=== PATIENT | female | born 1990 | race Caucasian/White ===

== ENCOUNTER → 2024-11-05 | Outpatient (CLI) | payer BC, SELFPAY ==
[2024-11-05 16:05] LABS: Collection Type, Urine Clean Catch
[2024-11-05 16:23] LABS: Basophils # (Auto) 0.1 Thou/mm3 (0.0-0.2); Basophils % (Auto) 1 % (0-2.5); Eosinophils # (Auto) 0.3 Thou/mm3 (0.0-0.5); Eosinophils % (Auto) 4 % (0-10); Hematocrit 40.9 % (36.0-46.0); Hemoglobin 14.8 g/dL (12.0-16.0); Immature Granulocytes % (Auto) 0 % (0-0); Immature Granulocytes Auto 0.02 Thou/mm3 (0.00-0.00); Lymphocytes # (Auto) 2.9 Thou/mm3 (1.0-4.8); Lymphocytes % (Auto) 32 % (10-50); Mean Corpuscular HGB Conc 36.2 g/dl (31.0-37.0); Mean Corpuscular Hemoglobin 30.3 pg (25.0-35.0); Mean Corpuscular Volume 84 fL (80-100); Monocytes # (Auto) 0.5 Thou/mm3 (0.0-0.8); Monocytes % (Auto) 6 % (0-12); Neutrophils # (Auto) 5.3 Thou/mm3 (1.8-7.7); Neutrophils % (Auto) 59 % (37-80); Nucleated Red Blood Cell % 0 /100 WBC (0); Platelet Count 302 Thou/mm3 (140-440); RDW Standard Deviation 36.5 fL (36.4-46.3); Red Blood Count 4.89 Miln/mm3 (4.00-5.20); White Blood Count 9.1 Thou/mm3 (3.6-11.0)
[2024-11-05 16:29] LABS: HCG,Qualitative Serum Positive
[2024-11-05 16:37] LABS: Beta HCG,Quantitative 42 mIU/mL (<5.0)
[2024-11-05 16:42] LABS: Ferritin 133 ng/mL (7.3-270.7)
[2024-11-05 16:47] LABS: Bacteria,Urine Rare; Bilirubin,Urine Negative (Negative); Blood,Urine Negative (Negative); Budding Yeast,Urine Present; Color,Urine Lt-Yellow (Lt Yel-Yel); Glucose, Urine 4+ (Negative); Ketones,Urine 1+ (Negative); Leukocyte Esterase,Urine Negative (Negative); Nitrite,Urine Negative (Negative); PH,Urine 5.5 (5.0-7.0); Protein,Urine Negative (Neg - Trace); RBC,Urine < 1 /hpf (0-3); Specific Gravity,Urine 1.044 (1.001-1.035); Squamous Epithelial Cell,Urine 2 /hpf (0-5); Urobilinogen,Urine Negative mg/dL (0.0-1.0); WBC,Urine 4 /hpf (0-5)
[2024-11-05 16:53] LABS: Hepatitis B Surface Antigen Non Reactive (Non React); Rubella, IgG Antibody Reactive (Immune)
[2024-11-05 17:27] LABS: Clarity,Urine Hazy (Clear/Hazy)
[2024-11-05 18:37] LABS: Chlamydia trachomatis PCR Negative (Not Detect); Neisseria Gonorrhoeae DNA PCR Negative (Not Detect); Trichomonas Negative (Negative)
[2024-11-06 03:39] LABS: HIV (1&2) Antibody Rapid Non-Reactive
== END | disposition home or self-care (01) ==
LOC: COPL 15:34
PROVIDERS: PCP Internal Medicine; Referring Provider Internal Medicine; Visit Provider Internal Medicine
DX: O24.419 Gestational diabetes mellitus in pregnancy, unspecified control (principal); Z3A.00 Weeks of gestation of pregnancy not specified; Z32.2 Encounter for childbirth instruction
CPT/HCPCS: 36415; 81001; 82728; 84702; 84703; 85025; 86703; 86762; 86850; 86900; 86901; 87086; 87340; 87491; 87591; 87661

== ENCOUNTER 2024-11-21 13:20 | Outpatient (AMB) | payer BC, MEDICAID, SELFPAY ==
--- NOTE | 2024-11-21 13:38 | OBCLNT_ITS ---
Vital Signs 11/21/24 13:49 Height 1.57 m Height Method Stated Weight 119.805 kg Weight Measurement Method Standing Scale BMI 48.3 BP 128/79 Blood Pressure Source Automatic Cuff Blood Pressure Location Right Upper Arm Position Sitting Respiration 17 Pulse 76 Pulse Source Monitor Temp 98.2 F Temp Source Temporal Artery Scan Pulse Oximetry (%) 95 Oxygen Delivery Method Room Air Allergies/Home Meds Allergies & Medications Allergies No Known Allergies Allergy (Verified 11/21/24 13:38) Medication Reconciliation doxylamine 10 mg-pyridoxine (vit B6) 10 mg tablet,delayed release (Diclegis) 1 tab PO BID 30 days #60 tabs 11/21/24 [Rx] vitamin-ferrous fumarate 28 mg iron-folic acid 800 mcg tablet ( Vitamins with Minerals) 1 tab PO QDAY #60 tabs 11/21/24 [Rx] Intake Visit Data Collection New Patient or Established: Established Patient (seen at [facility] within 3 years) Reason for Visit:: OBI Narcotics Agent Required: No Do You Feel Safe at Home: Yes Authorities Contacted: N/A PCP or OBGYN visit in last 3 months: No Hx Now: Yes Are you currently on any form of Control: No Pain Present Currently: No Pain Scale Used: Palmer-David/Numerical Pain scale:: 0 Smoking Status Smoking Status: Never smoker Questionnaires Covid-19 Vaccine Questionnaire Has patient been vacinated for Covid-19 Have you been vacinated for Covid-19: Yes PHQ-9 PHQ-2 Over the last 2 weeks, how often have you been bothered by any of the following problems? 1. Little interest or pleasure in doing things: not at all 2. Feeling down, depressed, or hopeless: not at all Total score: 0 PHQ-9 3. Trouble falling or staying asleep, or sleeping too much: Not at all 4. Feeling tired or having little energy: Not at all 5. Poor appetite or overeating: Not at all 6. Feeling bad about yourself - or that you are a failure or have let yourself or your family down: Not at all 7. Trouble concentrating on things, such as reading the newspaper or watching television: Not at all 8. Moving or speaking so slowly that other people could have noticed? - Or the opposite - being so fidgety or restless that you have been moving around a lot more than usual: not at all 9. Thoughts that you would be better off or of hurting yourself in some way: Not at all Total score: 0 If you checked off any problems, how difficult have these problems made it for you to do your work, take care of things at home, or get along with other people?: not difficult at all Source: Developed by Drs. Huey Christianson, Rola Carter, Paolo Shaffer and colleagues, with an educational herberth from [employer]. Depression screen completed yes Social History Living Situation History Marital Status: Life Partner Lives With: Significant Other Housing: Apartment Tobacco History Smoking Status: Never smoker Alcohol History Alcohol Intake: Never Domestic Abuse History Do You Feel Safe at Home: Yes History of Present Illness HPI Narrative 33 yo for OBI. LMP 10/04/24, short x 2 days. usually menses q month. GDM with 1st . no PMH,No social Habit. unplanned . no SAB complaints. 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 unplanned . LMP 10/04/24. short. increasing nausea. No SAB complaints. prev c/s x1 OB panel, HCG. A 1c and 1 hr gtt. schedule OB sono for visblity. start PNV, diclegesis for nausea. discuss sab precaution, discuss diet and weight. rtc 4 week Menstrual History Menstrual reliability: approximate (month known) Flow: heavy Menstrual regularity: regular Monthly: Yes Age at menarche: 13 On control pills at conception: No OB History : 3 Para: 1 Hx # Pregnancies: 0 # of Living Children: 1 Delivery History 1st : Child's name: LAURA CORONEL date: 04/05/22 sex: male Gestational age at delivery (weeks): 40 Delivery type: weight (lbs): 3628.739 g weight (oz): 226.796 g History of depression before or after : Yes Additional comments: DEPRESSION BEFORE Infection History & Risk Evaluation History of STDs: none HIV risk evaluation: low risk Hepatitis B risk evaluation: low risk Patient or partner has history of Genital Herpes: No Varicella/chicken pox status: immunized Genetic Screening & History Genetic Screening/Teratology Counseling - Includes patient, baby's father, or anyone in either family with: 1. Patient's age 35 years or older as of estimated date of delivery: No 2. Thalassemia (Central African, Panamanian, Mediterranean, or Background); MCV less than 80: No 3. Neural Tube Defect (Meningomyelocele, Spina Bifida, or Anencephaly): No 4. Congenital Heart Defect: No 5. Down Syndrome: No 6. Roman-Sachs (Ashkenazi Anabaptist, Cajun, Persian Otis): No 7. Javier Disease (Ashkenazi Anabaptist): No 8. Familial Dysautonomia (Ashkenazi Anabaptist): No 9. Sickle Cell Disease or Trait (): No 10. Hemophilia or other blood disorders: No 11. Muscular Dystrophy: No 12. Cystic Fibrosis: No 13. [place]'s Chorea: No 14. Mental Retardation/Autism: No 15. Other inherited genetic or chromosomal disorder: No 16. Maternal Metabolic Disorder (EG,TYPE 1 Diabetes, PKU): No 17. Patient or baby's father had a child with defects not listed above: No 18. Recurrent loss or a stillbirth: No 19. Medications (including supplements, vitamins, herbs or otc drugs)/illicit/recreational drugs/alcohol since last menstrual period: No 20. Any other: No Infection History 1. Live with someone with TB or exposed to TB: No 2. Rash or viral illness since last menstrual period: No 3. Hepatitis B,C: No Other (see comments) Source: [employer] Review of Systems Review of Systems Systems Reviewed: All systems reviewed, normal except as documented Exam Narrative Physical exam: prev c/s x1 General Limitations: no limitations General Appearance: alert, in no apparent distress, comfortable, cooperative, healthy appearing, well developed and well groomed Chest Chest inspection: Present normal inspection and symmetric chest wall rise Resp Respiratory exam: Present normal lung sounds bilaterally Card Cardiovascular exam: Present regular rate, normal rhythm and normal heart sounds Abdominal Abdominal exam: Present soft and normal bowel sounds Psych Psychiatric exam: Present normal affect and normal mood Office Procedures OB Clinic LOC & Office Proc's Nursing/Assessment Patient Status: Established Patient OB Clinic Nursing Assessment: Medication Reconciliation, Update PMH in EMR and Vital Signs OB Clinic Coordination of Care: Complex Care and Chronic Disease 1-5, Consent,records obtained, informed consent, Education Simp Pt/Fam and Lab and Imaging orders Special Needs: Heart tones Established Patient Charge Established Patient Point Assignment: 120 Established Patient Point Charge: EP Level 4 (120-155) Assessment & Plan Diagnosis / Problem List (1) Encounter for supervision of high risk in first trimester, antepartum: Status: Acute (2) Previous section: Status: Acute (3) Maternal obesity syndrome in first trimester: Status: Acute (4) Threatened affecting intrauterine : Status: Acute Plan hcg, A1c,1hr gtt,OB panel today, sched ob sono for viability. discuss sab precaution. rtc 4 week obc Additional Plan Follow Up: 4 Weeks (obc)
[2024-11-21 13:49] VITALS: BP 128/79; PULSE 76; RESP 17; TEMP 36.8; O2SAT 95; BMI 48.3
== END 2024-11-21 14:46 | disposition home or self-care (01) ==
PROVIDERS: PCP Internal Medicine; Referring Provider Internal Medicine; Supervising Provider Advanced Practice Midwife; Visit Provider Advanced Practice Midwife
DX: O09.291 Supervision of pregnancy with other poor reproductive or obstetric history, first trimester (principal); O34.219 Maternal care for unspecified type scar from previous cesarean delivery; O09.891 Supervision of other high risk pregnancies, first trimester; O99.211 Obesity complicating pregnancy, first trimester; O20.0 Threatened abortion; Z3A.01 Less than 8 weeks gestation of pregnancy; Z86.32 Personal history of gestational diabetes
CPT/HCPCS: 99214; G0463

== ENCOUNTER → 2024-11-22 | Outpatient (CLI) | payer BC, MEDICAID, SELFPAY ==
[2024-11-22 09:13] LABS: Collection Type, Urine Clean Catch
[2024-11-22 09:47] LABS: Glucose Estimated Average 329 mg/dL (80-131); Hemoglobin A1C 13.1 % Hgb (4.8-6.0)
[2024-11-22 09:49] LABS: Glucose,1 Hour PP 50gm Dose 351 mg/dL (80-140)
[2024-11-22 09:53] LABS: Bacteria,Urine Rare; Bilirubin,Urine Negative (Negative); Blood,Urine Negative (Negative); Clarity,Urine Clear (Clear/Hazy); Color,Urine Lt-Yellow (Lt Yel-Yel); Culture Indicated,Urine Not Indicated; Glucose, Urine 4+ (Negative); Ketones,Urine 4+ (Negative); Leukocyte Esterase,Urine Positive (Negative); Nitrite,Urine Negative (Negative); PH,Urine 5.5 (5.0-7.0); Protein,Urine Trace (Neg - Trace); RBC,Urine 6 /hpf (0-3); Specific Gravity,Urine 1.046 (1.001-1.035); Squamous Epithelial Cell,Urine 2 /hpf (0-5); Urobilinogen,Urine Negative mg/dL (0.0-1.0); WBC,Urine 5 /hpf (0-5)
[2024-11-22 10:13] LABS: Syphilis Nonreactive (Nonreactive)
[2024-11-22 10:29] LABS: Hepatitis B Surface Antigen Non Reactive (Non React); Hepatitis C Antibody Non Reactive (Non React); Rubella, IgG Antibody Reactive (Immune)
[2024-11-22 11:02] LABS: HIV (1&2) Antibody Rapid Non-Reactive
== END | disposition home or self-care (01) ==
PROVIDERS: PCP Internal Medicine; Referring Provider Advanced Practice Midwife; Visit Provider Advanced Practice Midwife
DX: O20.0 Threatened abortion (principal); O99.211 Obesity complicating pregnancy, first trimester
CPT/HCPCS: 36415; 81001; 82950; 83036; 86703; 86762; 86780; 86803; 87340

== ENCOUNTER → 2024-11-30 | Outpatient (CLI) | payer BC, MEDICAID, SELFPAY ==
--- NOTE | 2024-11-30 10:15 | XR_ITS ---
Examination: Complete OB ultrasound, less than 14 weeks, transabdominal Date and time of exam: November 30, 2024 1102 hours INDICATIONS: Physician's orders threatened affecting intrauterine , maternal obesity syndrome first trimester Technique: Obstetrical ultrasound images less than 14 weeks performed via transabdominal imaging Findings: Uterus 11.4 cm intrauterine gestational sac 1.0 cm corresponds to 5 weeks 5 day gestational age. No pole, no cardiac activity Right ovary 2.5 cm arterial flow Left ovary 2.5 cm arterial flow IMPRESSION: Empty intrauterine gestational sac corresponding to 5 weeks 5 day gestational age No pole, no cardiac activity Recommend short-term follow-up transvaginal pelvic sonography to confirm viability
== END | disposition home or self-care (01) ==
LOC: CDIM 10:19
PROVIDERS: PCP Internal Medicine; Referring Provider Advanced Practice Midwife; Visit Provider Advanced Practice Midwife
DX: O20.0 Threatened abortion (principal); O99.211 Obesity complicating pregnancy, first trimester; O09.91 Supervision of high risk pregnancy, unspecified, first trimester
CPT/HCPCS: 76801

== ENCOUNTER 2024-12-05 14:26 | Emergency (ER) | payer BC, MEDICAID, SELFPAY ==
[2024-12-05 14:27] VITALS: BMI 48.2
[2024-12-05 14:36] VITALS: BP 144/90; PULSE 78; RESP 18; TEMP 36.6; O2SAT 98
--- NOTE | 2024-12-05 14:39 | XR_ITS ---
Examination: Complete OB ultrasound, less than 14 weeks, transabdominal Date and time of exam: December 05, 2024 1538 hours INDICATIONS: Vaginal bleeding today, pelvic and back pain one week Technique: Obstetrical ultrasound images less than 14 weeks performed via transabdominal imaging Findings: Uterus 10.1 cm, gestational sac 1.4 cm corresponds to 6 week 2 day gestational age The gestational sac is low in position in the lower uterine segment No pole, no cardiac activity Right ovary 2.4 cm arterial flow Left ovary 2.6 cm arterial flow IMPRESSION: Findings most consistent with spontaneous in progress, recommend short-term follow-up pelvic sonography
--- NOTE | 2024-12-05 14:39 | EDNOTE_ITS ---
<Statement entered by Zahra Morales MD - 12/14/24 19:13> As co-signing physician, I was present and available for consult prn. I concur with the plan and care as documented by the midlevel provider. ED OB Contraction Preg RMI/HPI General Chief complaint: Vaginal Bleeding Stated complaint: SPOTTING & BACK PAIN SINCE TODAY; 5WKS&5DAYS OB Time Seen by Provider: 12/05/24 14:33 Source: patient Arrival date/time: 12/05/24 14:26 33-year-old female with no known medical history presents to the emergency room with a chief complaint of vaginal spotting and lower back pain x 1 day. Patient is currently 5 weeks and 5 days . Patient is a G3, P1. Mode of arrival: ambulatory Limitations: no limitations Related Data Previous Rx's ?Medication ?Instructions ?Recorded doxylamine 10 mg-pyridoxine (vit 1 tab PO BID 30 days #60 tabs 11/21/24 B6) 10 mg tablet,delayed release (Diclegis) vitamin-ferrous fumarate 1 tab PO QDAY #60 ta bs 11/21/24 28 mg iron-folic acid 800 mcg tablet ( Vitamins with Minerals) Allergies Allergy/AdvReac Type Severity Reaction Status Date / Time No Known Allergies Allergy Verified 12/06/24 01:36 Review of Systems Review of Systems Systems Reviewed: All systems reviewed, normal except as documented Constitutional Constitutional: Reports system reviewed and no additional complaints, except as documented, Denies fatigue, Denies fever(s), Denies headache(s) and Denies weakness Eyes Eyes: Reports system reviewed and no additional complaints, except as docum ented, Denies blurry vision and Denies change in vision ENT Ears, Nose, Mouth, and Throat: Reports system reviewed and no additional complaints, except as documented, Denies otalgia, Denies headache(s), Denies nasal congestion, Denies throat swelling and Denies vertigo Cardiovascular Cardiovascular: Reports system reviewed and no additional complaints, except as documented, Denies chest pain, Denies dyspnea and Denies dyspnea on exertion Respiratory Respiratory: Reports system reviewed and no additional complaints, except as documented, Denies chest congestion, Denies cough, Denies dyspnea, Denies dyspnea on exertion and Denies wheezing Gastrointestinal Gastrointestinal: Reports system reviewed and no additional complaints, except as documented, Denies abdominal pain, Denies cramping, Denies nausea and Denies vomiting Genitourinary Genitourinary: Reports system reviewed and no additional complaints, except as documented, Reports abnormal vaginal bleeding and Denies pelvic pain Musculoskeletal Musculoskeletal: Reports system reviewed and no additional complaints, except as documented and Denies back pain Integumentary/Breasts Skin/Breast: Reports system reviewed and no additional complaints, except as documented and Denies wounds Neurologic Neurologic: Reports system reviewed and no additional complaints, except as documented, Denies confusion, Denies headache(s), Denies lack of coordination, Denies vertigo and Denies weakness Psychiatric Psychiatric: Reports system reviewed and no additional complaints, except as documented, Denies anxiety, Denies confusion, Denies depression, Denies paranoia, Denies suicidal ideation and Denies tactile hallucinations Endocrine Endocrine: Reports system reviewed and no additional complaints, except as documented and Denies fatigue Hematologic/Lymphatic Hematologic/Lymphatic: Reports system reviewed and no additional complaints, except as documented and Denies lymphadenopathy Allergic/Immunologic Allergic/Immunologic: Reports system reviewed and no additional complaints, except as documented, Denies throat swelling, Denies urticaria and Denies wheezing Past Medical History Past Medical History CARDIAC: Negative Congestive Heart Failure RESPIRATORY: Negative Chronic Obstructive Pulmonary Disease (COPD) GENITOURINARY: Negative Renal Disease ENDOCRINE: Positive Diabetes Mellitus Type 2; Negative Diabetes Mellitus Type 1 Social History SMOKING STATUS: Never smoker ED Exam General Limitations: Present no limitations General appearance: Present alert and in no apparent distress Head Head exam: Present atraumatic Eye Eye exam: Present normal appearance, PERRL and EOMI ENT ENT exam: Present normal exam, normal oropharynx and mucous membranes moist Neck Neck exam: Present normal inspection, full ROM and trachea midline Chest Chest inspection: Present normal inspection and symmetric chest wall rise Respiratory Respiratory exam: Present normal lung sounds bilaterally Cardiovascular Cardiovascular exam: Present regular rate, normal rhythm and normal heart sounds Abdominal Exam Abdominal exam: Present soft and normal bowel sounds; Absent distention, tenderness, guarding, rebound or rigidity Extremities Exam Extremities exam: Present normal inspection and full ROM Back Exam Back exam: Present normal inspection and full ROM Neurological Exam Neurological exam: Present alert, oriented X3 and CN II-XII intact Psychiatric Psychiatric exam: Present normal affect and normal mood Skin Skin exam: Present warm, dry, intact and normal color Course Quality Measures none Orders Category Date Time Status US OB <= 14 weeks fetus Stat Exams 12/05/24 14:39 Completed ABO/RH Type Stat Lab 12/05/24 14:49 Completed Beta HCG,Quantitative Stat Lab 12/05/24 14:49 Completed CBC Stat Lab 12/05/24 14:49 Completed CMP [Comprehensive Metabolic Panel] Stat Lab 12/05/24 14:49 Completed UA [Urinalysis] Stat Lab 12/05/24 14:45 Completed Vital Signs Vital signs: Vital Signs Temperature 98 F 12/05/24 14:36 Pulse Rate 78 12/05/24 14:36 Respiratory Rate 18 12/05/24 14:36 Blood Pressure 144/90 H 12/05/24 14:36 Pulse Oximetry (%) 98 12/05/24 14:36 Oxygen Delivery Method Room Air 12/05/24 14:36 O2 saturation 98% within normal limits Vaginal Bleeding MDM Narrative MDM Narrative: 33-year-old female with no known medical history presents to the emergency room with a chief complaint of vaginal spotting and lower back pain x 1 day. Patient is currently 5 weeks and 5 days . Patient is a G3, P1. Patient is hemodynamically stable and in no apparent distress. She is not tachycardic not tachypneic and O2 saturation is within normal limits Physical examination shows some lumbar back pain at this time there is no heavy vaginal bleeding patient states she is only having vaginal spotting when she wipes. Ultrasound OB was completed and at this time there is no cardiac activity and there is no pole. Our radiologist states that she is currently 6 weeks and 2 days . I spoke to the patient and told her that the findings are most consistent with a spontaneous but due to the gestational age a short-term follow-up is needed. I told the patient that she can follow-up with her [facility]PET INSPECTOR FINISHED or return to the emergency room in 3 days for repeat ultrasound as well as blood work. I spoke to the patient and told her that her sugar was elevated and that she will need to follow-up with her [facility]PET INSPECT[facility] FINISHED and monitor her sugar. I also spoke to the patient that if she is having increased bleeding or worsening pain she can return to the emergency room. Today her hCG levels were 3589. Patient was discharged and educated to follow-up with primary care provider in the next 24 to 48 hours and return to the emergency room for any evidence of worsening signs or symptoms Patient data External records reviewed:: [facility] previous records Clinical information provided by:: patient Social determinants that could affect healthcare access:: none Patient has the following chronic illnesses:: No chronic illnesses How is presenting disease/condition affected by chronic disease/condition?: no chronic disease Evaluation data The following diagnostics were reviewed and interpreted by me:: lab results and radiology exam(s) Lab and/or radiology exams considered but not ordered:: Labs and radiology exams considered and ordered Interpretation Summary: Ultrasound OB-Findings: Uterus 10.1 cm, gestational sac 1.4 cm corresponds to 6 week 2 day gestational age The gestational sac is low in position in the lower uterine segment No pole, no cardiac activity Right ovary 2.4 cm arterial flow Left ovary 2.6 cm arterial flow IMPRESSION: Findings most consistent with spontaneous in progress, recommend short-term follow-up pelvic sonography Medications / Prescriptions Medications or Prescriptions considered but not ordered:: No medication given Medication administrations:: No medication given Consultations Consultation(s) initiated? (list below): No Diagnosis Vaginal Bleeding Differential Diagnosis: dysfunctional uterine bleeding, ectopic without intrauterine and vaginal bleeding Most likely diagnosis given after review of the tests above:: Vaginal bleeding Admission Indicated Admission indicated?: not indicated Admission Request Was there a request for admission?: No Disposition Plan Disposition Plan: Discharge Discharge Attestation Discharge Attestation: The patient and all family members were given an opportunity to ask questions and understood the discharge instructions. Discharge instructions specifically effects, indications for sooner follow up or return to the emergency department, and the expected course of current diagnosis. Patient condition: Stable Discharge Plan Plan Patient Disposition: HOME (Self Care) Discharge Disposition comment: Stable Prescriptions/Referrals Prescriptions/Med Rec: No Action vit-iron fum-folic ac [ Vitamin with Minerals] 28 mg iron- 800 mcg tablet 1 tab PO QDAY Qty: 60 3RF doxylamine-pyridoxine (vit B6) [Diclegis] 10-10 mg tablet,delayed release (DR/EC) 1 tab PO BID 30 Days Qty: 60 2RF Referrals: No Primary/Family,Physician [Primary Care Provider] - In 1 week Problem List Clinical Impression: Vaginal spotting, Lumbar back pain Patient/Caregiver Discharge Instructions Education Materials: ED Dysfunctional Uterine Bleeding Additional Instructions: Please follow-up with your CARPET INSPECTOR FINISHED in the next 24 to 48 hours At this time your ultrasound shows that you are 6 weeks and 2 days. There is no cardiac activity that was found on the ultrasound. Our radiologist recommends a short-term follow-up to assess your . Today your hCG levels are 3589 Please follow-up with your CARPET INSPECTOR FINISHED in the next 24 to 48 hours For any evidence of worsening signs or symptoms return to the emergency room immediately Print Language: Swedish Stand Alone Forms: [employer] Award Info., Patient Portal Info Letter PA/ALYSON Supervising Physician PA/ALYSON Supervising Physician: Dr. MORALES
[2024-12-05 14:55] LABS: Basophils # (Auto) 0.0 Thou/mm3 (0.0-0.2); Basophils % (Auto) 1 % (0-2.5); Eosinophils # (Auto) 0.2 Thou/mm3 (0.0-0.5); Eosinophils % (Auto) 3 % (0-10); Hematocrit 39.3 % (36.0-46.0); Hemoglobin 14.0 g/dL (12.0-16.0); Immature Granulocytes Auto 0.02 Thou/mm3 (0.00-0.00); Lymphocytes # (Auto) 2.4 Thou/mm3 (1.0-4.8); Lymphocytes % (Auto) 36 % (10-50); Mean Corpuscular HGB Conc 35.6 g/dl (31.0-37.0); Mean Corpuscular Hemoglobin 30.9 pg (25.0-35.0); Mean Corpuscular Volume 87 fL (80-100); Monocytes # (Auto) 0.4 Thou/mm3 (0.0-0.8); Monocytes % (Auto) 6 % (0-12); Neutrophils # (Auto) 3.7 Thou/mm3 (1.8-7.7); Neutrophils % (Auto) 55 % (37-80); Nucleated Red Blood Cell # 0.00 Thou/mm3 (0.00-0.00); Nucleated Red Blood Cell % 0 /100 WBC (0); Platelet Count 251 Thou/mm3 (140-440); RDW Standard Deviation 40.1 fL (36.4-46.3); Red Blood Count 4.53 Miln/mm3 (4.00-5.20); White Blood Count 6.8 Thou/mm3 (3.6-11.0)
[2024-12-05 15:03] LABS: Collection Type, Urine Clean Catch
[2024-12-05 15:13] LABS: Bilirubin,Urine Negative (Negative); Blood,Urine 3+ (Negative); Clarity,Urine Clear (Clear/Hazy); Color,Urine Colorless (Lt Yel-Yel); Glucose, Urine 4+ (Negative); Ketones,Urine Trace (Negative); Leukocyte Esterase,Urine Negative (Negative); Nitrite,Urine Negative (Negative); PH,Urine 6.5 (5.0-7.0); Protein,Urine Negative (Neg - Trace); RBC,Urine 136 /hpf (0-3); Specific Gravity,Urine 1.032 (1.001-1.035); Squamous Epithelial Cell,Urine 5 /hpf (0-5); Urobilinogen,Urine Negative mg/dL (0.0-1.0); WBC,Urine 2 /hpf (0-5)
[2024-12-05 15:26] LABS: Alanine Aminotransferase 59 U/L (10-49); Albumin, Serum 4.3 gm/dL (3.5-5.0); Albumin/Globulin Ratio 1.6 (1.2-2.2); Alkaline Phosphatase 141 U/L (46-116); Anion Gap 7 (7-16); Aspartate Amino Transferase 43 U/L (0-34); BUN/Creatinine Ratio 10 Ratio (12-20); Beta HCG,Quantitative 3589 mIU/mL (<5.0); Bilirubin,Total 0.8 mg/dL (0.3-1.2); Blood Urea Nitrogen 8 mg/dL (9-23); Calcium 8.7 mg/dL (8.3-10.6); Calcium (Corrected) 8.7 mg/dL (8.5-10.1); Carbon Dioxide 24.1 mMol/L (20.0-31.0); Chloride 102 mMol/L (98-107); Creatinine (Component) 0.8 mg/dL (0.6-1.3); Estimated Creatinine Clearance 123.1 mL/min (>60); Globulin 2.7 gm/dL (2.3-3.5); Glucose 398 mg/dL (74-106); Osmolality,Calculated 281 (275-295); Potassium 3.8 mMol/L (3.4-5.1); Sodium 133 mMol/L (136-145); Total Protein 7.0 gm/dL (5.7-8.2); eGFR > 60 See Note
== END 2024-12-05 17:40 | disposition home or self-care (01) ==
PROVIDERS: Nurse Practitioner Family; Emergency Provider Emergency Medicine
DX: O20.9 Hemorrhage in early pregnancy, unspecified (principal); O99.891 Other specified diseases and conditions complicating pregnancy; M54.50 Low back pain, unspecified; Z3A.01 Less than 8 weeks gestation of pregnancy
CPT/HCPCS: 36415; 76801; 80053; 81001; 84702; 85025; 86900; 86901; 99284

== ENCOUNTER 2024-12-06 01:35 | Emergency (ER) | payer BC, MEDICAID, SELFPAY ==
[2024-12-06 01:36] VITALS: BMI 48.2
--- NOTE | 2024-12-06 01:56 | XR_ITS ---
Examination: OB Transvaginal ultrasound of the pelvis, complete Technique: Transvaginal sonographic images pelvis performed using sosa scale imaging Exam date and time: December 06, 2024, 0305 hours INDICATIONS: Spontaneous in progress on pelvic sonogram December 05, 2024, heavy vaginal bleeding this week. FINDINGS: Uterus 8.8 cm, echogenic structure in the lower uterine segment No heart tones No gestational sac Ovaries obscured by bowel gas IMPRESSION: Technically severely limited study Spontaneous in progress Recommend continued transvaginal pelvic sonography follow-up
[2024-12-06 01:57] VITALS: BP 162/99; PULSE 86; RESP 20; TEMP 37; O2SAT 96
[2024-12-06 02:19] LABS: Basophils # (Auto) 0.1 Thou/mm3 (0.0-0.2); Basophils % (Auto) 1 % (0-2.5); Eosinophils # (Auto) 0.2 Thou/mm3 (0.0-0.5); Eosinophils % (Auto) 3 % (0-10); Hematocrit 41.0 % (36.0-46.0); Hemoglobin 14.1 g/dL (12.0-16.0); Immature Granulocytes Auto 0.02 Thou/mm3 (0.00-0.00); Lymphocytes # (Auto) 3.2 Thou/mm3 (1.0-4.8); Lymphocytes % (Auto) 40 % (10-50); Mean Corpuscular HGB Conc 34.4 g/dl (31.0-37.0); Mean Corpuscular Hemoglobin 30.9 pg (25.0-35.0); Mean Corpuscular Volume 90 fL (80-100); Monocytes # (Auto) 0.5 Thou/mm3 (0.0-0.8); Monocytes % (Auto) 6 % (0-12); Neutrophils # (Auto) 4.0 Thou/mm3 (1.8-7.7); Neutrophils % (Auto) 50 % (37-80); Nucleated Red Blood Cell # 0.00 Thou/mm3 (0.00-0.00); Nucleated Red Blood Cell % 0 /100 WBC (0); Platelet Count 220 Thou/mm3 (140-440); RDW Standard Deviation 40.7 fL (36.4-46.3); Red Blood Count 4.57 Miln/mm3 (4.00-5.20); White Blood Count 8.0 Thou/mm3 (3.6-11.0)
[2024-12-06 02:36] LABS: Alanine Aminotransferase 56 U/L (10-49); Albumin, Serum 4.3 gm/dL (3.5-5.0); Albumin/Globulin Ratio 1.5 (1.2-2.2); Alkaline Phosphatase 141 U/L (46-116); Anion Gap 8 (7-16); Aspartate Amino Transferase 35 U/L (0-34); BUN/Creatinine Ratio 10 Ratio (12-20); Bilirubin,Total 1.0 mg/dL (0.3-1.2); Blood Urea Nitrogen 8 mg/dL (9-23); Calcium 9.0 mg/dL (8.3-10.6); Calcium (Corrected) 9.0 mg/dL (8.5-10.1); Carbon Dioxide 25.1 mMol/L (20.0-31.0); Chloride 101 mMol/L (98-107); Creatinine (Component) 0.8 mg/dL (0.6-1.3); Estimated Creatinine Clearance 123.1 mL/min (>60); Globulin 2.8 gm/dL (2.3-3.5); Osmolality,Calculated 286 (275-295); Potassium 3.9 mMol/L (3.4-5.1); Sodium 134 mMol/L (136-145); Total Protein 7.1 gm/dL (5.7-8.2); eGFR > 60 See Note
[2024-12-06 02:42] LABS: Glucose 466 mg/dL (74-106)
[2024-12-06 02:47] LABS: Beta HCG,Quantitative 2553 mIU/mL (<5.0)
[2024-12-06 04:09] VITALS: BP 164/115; PULSE 65; RESP 18; TEMP 36.7; O2SAT 96
[2024-12-06] MEDS: HYDROcodone/APAP 5/325 TABLET 1 TAB PO (04:20)
--- NOTE | 2024-12-06 04:20 | PD.EDRME ---
Rapid Medical Screening Exam RME Arrival date/time: 12/06/24 01:35 33F at approximately 8 weeks and history of gestational DM presents to ED with worsening vaginal bleeding including passing POC. Patient's sugar was found to be high, but patient does not want to wait for interventions because she just wants to go home and cry since she found out she's having another miscarriage. Patient states she will follow-up with PCP in the next day or 2. Chief Complaint: Vaginal Bleeding Time Seen by Provider: 12/06/24 01:56 Vital signs: Vital Signs Temperature 98.6 F 12/06/24 01:57 Pulse Rate 86 12/06/24 01:57 Respiratory Rate 20 12/06/24 01:57 Blood Pressure 162/99 H 12/06/24 01:57 Pulse Oximetry (%) 96 12/06/24 01:57 Oxygen Delivery Method Room Air 12/06/24 01:57
--- NOTE | 2024-12-06 05:35 | PRELIM_ITS ---
Obstetric ultrasound. December 06, 2024 0305 hours Clinical history: Confirm miscarriage; passed tissue. Technique: Real-time ultrasound was performed using Duplex scanning. Comparison: No prior study is available for comparison. Findings: A low-lying crown-rump length (CRL) is noted, measuring 1.6 cm, corresponding to a gestational age of 8 weeks and 0 days. No heart tones are identified. No yolk sac is visualized. The ovaries are obscured by bowel gas and are not evaluated on this examination. There is no free fluid in the cul-de-sac. Impression: Low-lying CRL noted without cardiac activity or yolk sac. Findings are suggestive of failure. Recommend clinical correlation and follow-up as needed. Discussion Details: Results verbally communicated to : Dr. Driscoll at 05:07 AM 12/06/2024 Report Electronically Signed By: Glory Merritt 12/06/2024 5:34:38 AM [EST]
== END 2024-12-06 04:29 | disposition left against medical advice (07) ==
LOC: SERX 02:17
PROVIDERS: Physician Assistant; Emergency Provider Emergency Medicine; PCP Internal Medicine
DX: O03.9 Complete or unspecified spontaneous abortion without complication (principal); Z3A.08 8 weeks gestation of pregnancy; Z53.29 Procedure and treatment not carried out because of patient's decision for other reasons
CPT/HCPCS: 36415; 76817; 80053; 84702; 85025; 99281; A9270

== ENCOUNTER → 2024-12-12 | Outpatient (CLI) | payer BC, MEDICAID, SELFPAY ==
[2024-12-12 10:45] LABS: Beta HCG,Quantitative 11 mIU/mL (<5.0)
== END | disposition home or self-care (01) ==
PROVIDERS: PCP Student in an Organized Health Care Education/Training Program; Referring Provider Student in an Organized Health Care Education/Training Program; Visit Provider Student in an Organized Health Care Education/Training Program
DX: O03.4 Incomplete spontaneous abortion without complication (principal)
CPT/HCPCS: 36415; 84702

== ENCOUNTER → 2024-12-12 | Outpatient (CLI) | payer BC, MEDICAID, SELFPAY ==
--- NOTE | 2024-12-12 12:10 | XR_ITS ---
Examination: Transvaginal ultrasound of the pelvis, complete Technique: Transvaginal sonographic images pelvis performed using sosa scale imaging Exam date and time: December 12, 2024 1221 hours INDICATIONS: Pelvic sonogram December 06, 2024 spontaneous in progress FINDINGS: Uterus 8.2 cm, no intrauterine gestation No retained products of conception Endometrial stripe 0.4 cm Pedunculated uterine body fibroid degeneration 12 x 12 mm Ovaries obscured by bowel gas IMPRESSION: Completed spontaneous .
== END | disposition home or self-care (01) ==
LOC: CDIM 11:47
PROVIDERS: PCP Internal Medicine; Referring Provider Student in an Organized Health Care Education/Training Program; Visit Provider Student in an Organized Health Care Education/Training Program
DX: O03.9 Complete or unspecified spontaneous abortion without complication (principal)
CPT/HCPCS: 76830

== ENCOUNTER 2024-12-17 09:32 | Outpatient (AMB) | payer BC, MEDICAID, SELFPAY ==
[2024-12-17 09:49] VITALS: BP 126/86; PULSE 76; RESP 17; TEMP 36.6; O2SAT 96; BMI 45.3
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
== END 2024-12-17 11:04 | disposition home or self-care (01) ==
LOC: HODSOBC 09:32
PROVIDERS: Supervising Provider Advanced Practice Midwife; Visit Provider Advanced Practice Midwife
DX: O03.9 Complete or unspecified spontaneous abortion without complication (principal); E11.9 Type 2 diabetes mellitus without complications; Z79.84 Long term (current) use of oral hypoglycemic drugs; E66.9 Obesity, unspecified
CPT/HCPCS: 99213; G0463

== ENCOUNTER 2024-12-21 23:44 | Emergency (ER) | payer BC, MEDICAID, SELFPAY ==
[2024-12-21 23:45] VITALS: BMI 44.2
[2024-12-22 00:06] VITALS: BP 165/98; PULSE 89; RESP 18; TEMP 36.9; O2SAT 98; BMI 45.7
[2024-12-22] MEDS: HYDROcodone/APAP 5/325 TABLET 1 TAB PO (01:12)
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
== END 2024-12-22 01:17 | disposition home or self-care (01) ==
LOC: SERX 12-22 01:13
PROVIDERS: Emergency Provider Emergency Medicine; PCP Internal Medicine
DX: S13.4XXA Sprain of ligaments of cervical spine, initial encounter (principal); S09.90XA Unspecified injury of head, initial encounter; V89.2XXA Person injured in unspecified motor-vehicle accident, traffic, initial encounter
CPT/HCPCS: 99283; A9270

== ENCOUNTER → 2025-01-16 | Outpatient (CLI) | payer BC, MEDICAID, SELFPAY ==
[2025-01-16 08:48] LABS: Basophils # (Auto) 0.1 Thou/mm3 (0.0-0.2); Basophils % (Auto) 1 % (0-2.5); Eosinophils # (Auto) 0.3 Thou/mm3 (0.0-0.5); Eosinophils % (Auto) 4 % (0-10); Hematocrit 40.9 % (36.0-46.0); Hemoglobin 13.6 g/dL (12.0-16.0); Immature Granulocytes Auto 0.02 Thou/mm3 (0.00-0.00); Lymphocytes # (Auto) 3.6 Thou/mm3 (1.0-4.8); Lymphocytes % (Auto) 41 % (10-50); Mean Corpuscular HGB Conc 33.3 g/dl (31.0-37.0); Mean Corpuscular Hemoglobin 30.3 pg (25.0-35.0); Mean Corpuscular Volume 91 fL (80-100); Monocytes # (Auto) 0.4 Thou/mm3 (0.0-0.8); Monocytes % (Auto) 5 % (0-12); Neutrophils # (Auto) 4.3 Thou/mm3 (1.8-7.7); Neutrophils % (Auto) 50 % (37-80); Nucleated Red Blood Cell # 0.00 Thou/mm3 (0.00-0.00); Nucleated Red Blood Cell % 0 /100 WBC (0); Platelet Count 351 Thou/mm3 (140-440); RDW Standard Deviation 39.8 fL (36.4-46.3); Red Blood Count 4.49 Miln/mm3 (4.00-5.20); White Blood Count 8.7 Thou/mm3 (3.6-11.0)
[2025-01-16 08:52] LABS: Glucose Estimated Average 235 mg/dL (80-131); Hemoglobin A1C 9.8 % Hgb (4.8-6.0)
[2025-01-16 09:23] LABS: Alanine Aminotransferase 58 U/L (10-49); Albumin, Serum 4.4 gm/dL (3.5-5.0); Albumin/Globulin Ratio 1.7 (1.2-2.2); Alkaline Phosphatase 95 U/L (46-116); Anion Gap 12 (7-16); Aspartate Amino Transferase 25 U/L (0-34); BUN/Creatinine Ratio 10 Ratio (12-20); Bilirubin,Total 0.6 mg/dL (0.3-1.2); Blood Urea Nitrogen 7 mg/dL (9-23); Calcium 9.7 mg/dL (8.3-10.6); Calcium (Corrected) 9.7 mg/dL (8.5-10.1); Carbon Dioxide 24.4 mMol/L (20.0-31.0); Cardiac Risk Estimate 3.9 RATIO (3.7-5.6); Chloride 104 mMol/L (98-107); Cholesterol 164 mg/dL (132-200); Creatinine (Component) 0.7 mg/dL (0.6-1.3); Globulin 2.6 gm/dL (2.3-3.5); Glucose 114 mg/dL (74-106); HDL Cholesterol 42 mg/dL (40-60); LDL Cholesterol,Calculated 83 mg/dL (0-130); Osmolality,Calculated 278 (275-295); Potassium 4.0 mMol/L (3.4-5.1); Sodium 140 mMol/L (136-145); Total Protein 7.0 gm/dL (5.7-8.2); Triglycerides 195 mg/dL (30-150); eGFR > 60 See Note
== END | disposition home or self-care (01) ==
LOC: COPL 07:13
PROVIDERS: PCP Internal Medicine; Referring Provider Internal Medicine; Visit Provider Internal Medicine
DX: E11.65 Type 2 diabetes mellitus with hyperglycemia (principal)
CPT/HCPCS: 36415; 80053; 80061; 82043; 82570; 83036; 85025